=== PATIENT | male | born 1970 | race Caucasian/White ===

== ENCOUNTER 2025-06-21 22:14 | Emergency (ER) | payer OTHER, SELFPAY ==
[2025-06-21] VITALS (13 sets, daily range): BP systolic 103–121; BP diastolic 72–83; PULSE 54–85; RESP 16; TEMP 36.5; O2SAT 93–99
--- NOTE | 2025-06-21 22:21 | ED.GENADUL_ITS ---
Discharge Plan Disposition Patient Disposition: Home Condition: Improving Discharge Details Clinical Impression: Allergic reaction to insect sting ED Provider: Marc Lanier [place] Meds and New Rx's Prescriptions: New epinephrine [EpiPen 2-Marek] 0.3 mg/0.3 mL auto-injector 0.3 mg IM Q5-15M PRNQty: 2 0RF Rx Instructions: do not exceed 3 doses per episode Discharge Instructions Instructions: Insect allergy Additional Instructions: You were seen in the ED for a generalized allergic reaction to insect sting. You should take diphenhydramine 50 mg every 6-8 hours for the next day. Take the provided dose of prednisone in the morning after you wake up. client application support specialist your prescription for epinephrine pens for potential future reactions that lead to anaphylaxis as we discussed. You do not necessarily need to use epinephrine for generalized rash but you do if you develop respiratory, circulatory or GI symptoms associated with generalized rash and allergen exposure. Follow-up with primary care 1 to 2 weeks. Return to ED for any difficulty breathing, syncope, other concerns. HPI General Mode of arrival: ambulatory . Date/Time Provider Initiated Documentation: 06/21/25 22:16 . Limitations to Documentation: no limitations . Information obtained by: patient and RN notes reviewed . HPI Narrative: Patient presents to the ED with allergic reaction. Patient reports that he was stung, he thinks by a wasp, a couple hours ago. He has developed diffuse hives. He cannot tell if he has any real swelling in his oropharynx or throat. He denies difficulty breathing. He denies lightheadedness or palpitations. Denies any GI symptoms. He did take a Claritin and ibuprofen prior to coming in. Related Data Home Medications ?Medication ?Instructions ?Recorded ?Confirmed epinephrine 0.3 mg/0.3 mL 0.3 mg (0.3 mL) IM Q5-15M DE N #2 ea 06/21/25 injection, auto-injector (EpiPen 2-Marek) Previous Rx's ?Medication ?Instructions ?Recorded epinephrine 0.3 mg/0.3 mL 0.3 mg (0.3 mL) IM Q5-15M DE N #2 ea 06/21/25 injection, auto-injector (EpiPen 2-Marek) Allergies Allergy/AdvReac Type Severity Reaction Status Date / Time No Known Allergies Allergy Unverified 06/21/25 22:24 General Stated Complaint: Allergic DEMI: 3 Exam Narrative Exam Narrative: Const: WDWN male in NAD. VS per triage. HEENT: NC/AT. Normal facial exam. Normal OP. Neck: Supple. Trachea midline. Lungs: Normal respiratory effort. Lungs are clear. Cor: RRR without murmur. Good radial pulses. Neuro: A+O x 3. Normal speech, mentation, gait. Cranial nerves II - XII grossly intact. No gross motor or sensory deficit. Ext: No C/C/E. Skin: Diffuse hives. Course Vital Signs Vital signs: Vital Signs Temperature 97.7 F 06/21/25 22:17 Pulse 70 06/21/25 22:17 Respiratory Rate 16 06/21/25 22:17 Blood Pressure 121/79 06/21/25 22:17 Pulse Oximetry 99 06/21/25 22:17 Temperature 97.7 F 06/21/25 22:17 Temperature Source Tympanic 06/21/25 22:17 Pulse 70 06/21/25 22:17 Respiratory Rate 16 06/21/25 22:17 Blood Pressure 121/79 06/21/25 22:17 Pulse Oximetry 99 06/21/25 22:17 Pain Level 0 06/21/25 22:17 Medical Decision Making Patient presenting to the ED with a diffuse allergic reaction from a presumed insect sting. He has normal vital signs and saturations. He has no oral pharyngeal edema. He has no stridor or wheezing. He has no GI symptoms. This appears to be systemic allergy reaction but not anaphylaxis. IV has already been placed. Will dose with diphenhydramine and Solu-Medrol and reevaluate. No need for epinephrine at this time. Will need epinephrine autoinjector prescribed at discharge. 23:15 - Hives are fading but not completely resolved. No new symptoms. Will dose of prednisone to take in the morning. Continue diphenhydramine 50 mg orally every 6-8 hours for the next day. Prescription for epinephrine sent to pharmacy. Discussed difference between generalized allergic reaction and anaphylaxis. Follow-up with PCP as needed. Return precautions provided. PFSH All Active Problems (Updated 06/21/25 @ 23:18 by Marc Lanier MD) Allergic reaction to insect sting (Acute) Social History Smoking/Tobacco Use Status: Never Smoking risk assessment performed?: Yes Alcohol Intake: never Substance use type: does not use Housing: house Do you feel safe at home: Yes Do you feel safe in your relationship?: Yes
[2025-06-21] MEDS: methylPREDNISolone SUCC 125 MG VIAL IVP (22:37)
[2025-06-21] MEDS: diphenhydrAMINE 50 MG/ML VIAL IVP (22:38)
[2025-06-22] VITALS (40 sets, daily range): BP systolic 82–118; BP diastolic 52–79; PULSE 56–81; RESP 18; O2SAT 92–97
[2025-06-22] MEDS: predniSONE 20 MG TAB 40 MG PO (04:42)
== END 2025-06-22 04:50 | disposition home or self-care (01) ==
LOC: ER 06-22 05:20
PROVIDERS: Emergency Provider Emergency Medicine
DX: L50.0 Allergic urticaria; R60.0 Localized edema; W57.XXXA Bitten or stung by nonvenomous insect and other nonvenomous arthropods, initial encounter; T63.461A Toxic effect of venom of wasps, accidental (unintentional), initial encounter
CPT/HCPCS: 99284 ×2; 96374; 96375; 36415; J1200; J2919; J7512